=== PATIENT | female | born 1995 | race African-American/Black ===

== ENCOUNTER 2019-08-27 01:47 | Inpatient (IN) ==
[2019-08-27 02:23] LABS: Apearance,Urine CLEAR (Clear); Bilirubin,Urine Negative (Negative); Blood, Urine Negative (Negative); Glucose,Urine (UA) Negative (Negative); Ketones,Urine Negative (Negative); Nitrite,Urine Negative (Negative); Protein,Urine Negative; RBC,Urine <1 /HPF (0-4); Squamous Epithelial Cell,Urine Occasional /HPF (0-10); Urine Color Straw (Yellow); Urine Specific Gravity 1.001 (1.001-1.035); Urine Urobilinogen < 2.0 EU/DL (0.2-1.0); WBC,Urine <1 /HPF (0-6)
[2019-08-27] MEDS ORDERED: LACTATED RINGERS 1,000 ML IV ONE (05:00)
[2019-08-27] MEDS ORDERED: ONDANSETRON 4 MG/2 ML VIAL IV PRN ×2 (06:37→15:50)
[2019-08-27] MEDS ORDERED: LACTATED RINGERS 250 ML IV ONE (06:37)
[2019-08-27] MEDS ORDERED: LACTATED RINGERS 500 ML IV PRN (06:37)
[2019-08-27] MEDS ORDERED: PROMETHAZINE 25 MG/1 ML VIAL IM PRN (06:39)
[2019-08-27] MEDS ORDERED: NALOXONE 0.4 MG/ML VIAL IV PRN (06:39)
[2019-08-27] MEDS ORDERED: hydrOXYzine HCL 25 MG/1 ML VIAL IM PRN (06:39)
[2019-08-27] MEDS ORDERED: CITRIC ACID/SODIUM CITRATE 30 ML UDCUP PO ONE (06:39)
[2019-08-27] MEDS ORDERED: FAMOTIDINE 20 MG/2 ML VIAL IV ONE (06:39)
[2019-08-27] MEDS ORDERED: diphenhydrAMINE 50 MG/1 ML VIAL IV PRN (06:39)
[2019-08-27] MEDS ORDERED: fentaNYL 2 MCG/ROPIV 0.2% EPID 100 ML EPIDURAL SCH (07:00)
[2019-08-27 07:04] LABS: Basophils % 0.3 % (0.0-0.8); Eosinophils # 0.1 10*3/uL (0.0-0.87); Eosinophils % 1.1 % (0.00-10.9); Hematocrit 30.2 VOL% (35.7-47.0); Immature Granulocytes % 0.6 %; Immature Granulocytes Absolute 0.05 #; Lymphocytes # 2.1 10*3/uL (1.4-4.0); Lymphocytes % 25.9 % (21.3-54.2); Mean Corpuscular HGB Conc 33.1 GM/DL (32-36); Mean Corpuscular Volume 92.4 FL (87-102); Mean Platelet Volume 10.1 FL (9.6-12.0); Monocytes % 9.3 % (1.7-12.7); Neutrophils % 62.8 % (38.7-73.9); Platelet Count 183 T/CUMM (130-400); Red Blood Count 3.27 MC/CUMM (3.8-5.5); Red Cell Distribution Width 12.4 % (9.3-17.3)
[2019-08-27] MEDS ORDERED: AMPICILLIN INJ 2,000 MG in SODIUM CHLORIDE 0.9% 100 ML IV ONE (07:15)
[2019-08-27 07:27] LABS: Albumin 2.6 G/DL (3.4-5.0); Bilirubin,Total 0.4 MG/DL (0.2-1.0); Calcium 8.2 MG/DL (8.5-10.1); Osmolality,Calculated 269.7 MOS/KG (273-304); Total Protein 6.1 G/DL (6.4-8.3); Uric Acid 2.8 MG/DL (2.6-6.0)
[2019-08-27] MEDS: LACTATED RINGERS 1,000 ML IV SCH ×2 (07:27→11:56)
[2019-08-27] MEDS: ePHEDrine 50 MG/ML AMP IV PRN ×3 (10:21→11:34)
[2019-08-27] MEDS ORDERED: OXYTOCIN/LR 20 UNIT/1,000 ML BAG IV SCH (11:00)
[2019-08-27 11:12] LABS: Apearance,Urine CLEAR (Clear); Bilirubin,Urine Negative (Negative); Blood, Urine Negative (Negative); Glucose,Urine (UA) Negative (Negative); Ketones,Urine 5 mg/dL (Negative); Nitrite,Urine Negative (Negative); Protein,Urine Negative; RBC,Urine <1 /HPF (0-4); Urine Color Straw (Yellow); Urine Specific Gravity 1.004 (1.001-1.035); Urine Urobilinogen < 2.0 EU/DL (0.2-1.0)
[2019-08-27] MEDS ORDERED: miSOPROStoL 200 MCG TABLET ONE (15:27)
[2019-08-27] MEDS ORDERED: METHYLERGONOVINE 0.2 MG/1 ML AMP ONE (15:27)
[2019-08-27] MEDS ORDERED: CARBOPROST TROMETHAMINE 250 MCG/ML AMP IM ONE (15:28)
[2019-08-27] MEDS ORDERED: OXYTOCIN/LR 30 UNIT/1,000 ML BAG IV ONE (15:35)
[2019-08-27] MEDS ORDERED: OXYTOCIN 30 UNIT in DEXTROSE 5% LACTATED RINGERS 1,000 ML INJ ONE (15:50)
[2019-08-27] MEDS ORDERED: RHO(D) IMMUNE GLOBULIN 300 MCG SYRINGE IM ONE (15:50)
[2019-08-27] MEDS ORDERED: DIPH/TET/ACEL PERT BOOSTER VACCINE 0.5 ML VIAL IM ONE (15:50)
[2019-08-27] MEDS ORDERED: MEASLES/MUMPS/RUBELLA VACCINE 0.5 ML VIAL SUBCUT ONE (15:50)
[2019-08-27] MEDS ORDERED: oxyCODONE/ACETAMINOPHEN 5-325 MG TABLET PO PRN ×2 (15:50)
[2019-08-27] MEDS ORDERED: BISACODYL 10 MG SUPP RECTAL PRN (15:50)
[2019-08-27] MEDS ORDERED: ACETAMINOPHEN 325 MG TABLET PO PRN (15:50)
[2019-08-27] MEDS ORDERED: BENZOCAINE 20%/MENTHOL 0.5% SPRAY 56 GM CAN TOP PRN (15:50)
[2019-08-27] MEDS ORDERED: HYDROCORTISONE 2.5% RECTAL CREAM 30 GM TUBE TOP PRN (15:50)
[2019-08-27] MEDS ORDERED: WITCH HAZEL PADS 100/JAR TOP PRN (15:50)
[2019-08-27] MEDS ORDERED: LANOLIN 50% CREAM 0.3 OZ TUBE TOP PRN (15:50)
[2019-08-27] MEDS ORDERED: OXYTOCIN/LR 20 UNIT/1,000 ML BAG IV ONE (15:50)
[2019-08-27] MEDS ORDERED: OXYTOCIN 30 UNIT in DEXTROSE 5% LACTATED RINGERS 1,000 ML IV ONE (16:09)
[2019-08-27] MEDS: DOCUSATE SODIUM 100 MG CAPSULE PO SCH (21:29)
[2019-08-27] MEDS: IBUPROFEN 800 MG TABLET PO PRN (23:59)
[2019-08-28 06:15] LABS: Basophils % 0.4 % (0.0-0.8); Eosinophils # 0.1 10*3/uL (0.0-0.87); Eosinophils % 0.7 % (0.00-10.9); Hematocrit 29.7 VOL% (35.7-47.0); Hemoglobin 9.9 GM/DL (12.0-16.0); Immature Granulocytes % 0.4 %; Immature Granulocytes Absolute 0.04 #; Lymphocytes # 1.8 10*3/uL (1.4-4.0); Lymphocytes % 18.3 % (21.3-54.2); Mean Corpuscular HGB Conc 33.3 GM/DL (32-36); Mean Corpuscular Volume 92.5 FL (87-102); Mean Platelet Volume 10.6 FL (9.6-12.0); Monocytes % 9.5 % (1.7-12.7); Neutrophils % 70.7 % (38.7-73.9); Platelet Count 188 T/CUMM (130-400); Red Blood Count 3.21 MC/CUMM (3.8-5.5); Red Cell Distribution Width 12.4 % (9.3-17.3)
[2019-08-28] MEDS: FERROUS SULFATE 325 MG TABLET PO SCH ×2 (08:17→20:13)
[2019-08-28] MEDS: DOCUSATE SODIUM 100 MG CAPSULE PO SCH ×2 (08:17→20:13)
[2019-08-28] MEDS: IBUPROFEN 800 MG TABLET PO PRN ×2 (09:53→21:37)
[2019-08-29 09:43] VITALS: BP 115/74
[2019-08-29] MEDS: FERROUS SULFATE 325 MG TABLET PO SCH (13:59)
[2019-08-29] MEDS: DOCUSATE SODIUM 100 MG CAPSULE PO SCH (13:59)
== END 2019-08-29 13:45 | disposition home or self-care (01) | DRG 560 ==
LOC: N.LDOUT 01:47 → N.LD 01:49 → N.OB 19:40
PROVIDERS: ADMIT Obstetrics & Gynecology; ATTEND Obstetrics & Gynecology